=== PATIENT | male | born 1975 ===

== ENCOUNTER 2023-05-18 06:20 | Day surgery (SDC) | payer BC, SELFPAY ==
[2023-05-18] VITALS (12 sets, daily range): BP systolic 103–133; BP diastolic 56–78; BMI 27.4
[2023-05-18] MEDS: TYLENOL 1000 MG PO ×2 (08:57→17:14)
[2023-05-18] MEDS: NORMOSOL-R 1000 IV (08:57)
[2023-05-18] MEDS: TRANSDERM-SCOP 1 PATCH TRANSDERM (09:45)
--- NOTE | 2023-05-18 13:24 | W.IMMPOSTOP ---
Surgical Immed Post Op Note
-
Primary Surgeon: Mary Beth
Assisting Surgeon: Yariel PGY1
Pre-op Diagnosis: Ventral incisional hernia
Post-op Diagnosis: Incarcerated ventral incisional hernia
Procedure Performed: Robot assisted laparoscopic repair of ventral incisional hernia (IPOM+); lysis of adhesions (70 min)
Anesthesia Type: GETA + TAP block
Specimen / Cultures: None
Estimated Blood Loss: 5cc
Complications: None immediate
Operative Findings: Small bowel and omental adhesions to abdominal wall, additional 5mm optiview to right upper quadrant aided visualization for lap lysis to enable robotic trocar placement. Swish cheese midline defects encompassing an area of
roughly [id number], defects closed and 10cm x 15cm ventralight ST with echo placed, 8cm lateral to the midline at the old stoma site at the left lower quadrant an additional 3.5x1cm defect, 11cm round ventralight ST with echo placed. The midline mesh
was trimmed slightly to prevent mesh overlap on the left side. Total hernia size: [15cm]
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
[2023-05-18] MEDS: SUBLIMAZE 50 MCG IV ×2 (14:02→14:18)
--- NOTE | 2023-05-18 14:55 | PTCARENOTE ---
Pt arrived to [facility] from PACU s/p robotic laparoscopic ventral/incisional hernia repair. Pt on 2L NC satting 98 %, 5 lap incision sites POLYSOMNOGRAPHIC TECH, all C/D/I. Pt states 7/10 pain in his abdomen. Pt oriented to call garza and room, bed locked and in lowest
position, call garza within reach.
[2023-05-18] MEDS: ROXICODONE 10 MG PO ×2 (16:07→20:07)
[2023-05-18 20:29] LABS: Blood Urea Nitrogen 11 mg/dl (9-20); Calcium 8.2 mg/dl (8.4-10.2); Carbon Dioxide 22 mmol/L (22-30); Chloride 102 mmol/L (98-107); Estimated Creatinine Clearance > 125 ml/min; Glucose 146 mg/dl (70-99); Potassium 4.2 mmol/L (3.5-5.1); Sodium 135 mmol/L (135-145); eGFR > 60.00
[2023-05-18] MEDS: LOVENOX 40 MG SC (21:11)
[2023-05-18] MEDS: TORADOL 10 MG IV (23:48)
[2023-05-19 03:54] VITALS: BP 95/45
[2023-05-19 07:14] VITALS: BP 96/57
[2023-05-19] MEDS: ROXICODONE 5 MG PO ×2 (08:45→13:09)
[2023-05-19 11:09] VITALS: BP 127/65
[2023-05-19] MEDS: TYLENOL 1000 MG PO (12:09)
--- NOTE | 2023-05-19 12:51 | W.PN.GS2 ---
Today's Communication / Plan
-
DC home
Assessment / Plan
-
47M POD1 s/p rIPOM+ VIHR
Doing well post-op, meets criteria for DC
Subjective Data
-
Date of Service: May 19, 2023
AFVSS, ambulating, voiding, pain controlled, yecenia PO
Objective Data
-
Intake and Output
05/18/23 05/19/23 05/20/23
06:59 06:59 06:59
Intake Total 580 / 580
Balance 580 / 580
Intake:
Oral fluids 480 / 480
IV fluids (Total) 100 / 100
normosol 100 / 100
Other:
Number of approximated LARGE 1
amounts of urine
Vital Signs
Temp Pulse Resp BP Pulse Ox
97.9 F 66 15 127/65 100
05/19/23 11:09 05/19/23 11:09 05/19/23 11:09 05/19/23 11:09 05/19/23 11:09
Lab Results
05/18/23 20:10
Calcium 8.2 mg/dl (8.4-10.2) L 05/18/23 20:10
Physical Exam
-
Gen: NAD
Abd: approp ttp, incisions cdi
--- NOTE | 2023-05-19 12:52 | W.DS.TRANS ---
DC Summary - [employer]
-
Discharge Instructions:
Sleep Apnea Risk Low
Discharge Diagnosis/Procedures Ventral incisional hernia
Diet No restrictions
Activity No strenuous activity
Driving Restrictions No driving for 24 hours
Bathing Restrictions OK to Shower
Wound Care Allow skin glue to flake off on its own.
Instructions: Hernia Repair (DC)
Stand-Alone Forms:
Changes to Home Medications: No
Discharge Medications:
DC Medications w/original date entered in [facility]
acetaminophen 500 mg capsule 500 mg PO PRN PRN pain 05/14/23
ibuprofen 400 mg tablet 400 mg PO PRN PRN pain 05/14/23
ondansetron 4 mg disintegrating tablet 4 mg PO Q8H PRN nausea #20 tabs 05/18/23
oxycodone 5 mg tablet 5 - 10 mg PO Q4HPRN PRN moderate to severe pain #20 tabs 05/18/23
Home Medication Changes
Pending Results: No
--- NOTE | 2023-05-19 13:17 | CM ---
Chart reviewed. Spoke with pt at bedside
Lives in 2 story home with sister and her family
Independent, drives
Denies DME; denies past snf/HH
Has ride home at d/c
PCP - Dr Colbert
Pharm - [facility], [place]
Plan - Anticipate home - no needs
== END 2023-05-19 15:33 | disposition home or self-care (01) ==
LOC: SDS 06:20
PROVIDERS: Registered Nurse; ATTENDING PHYSICIAN Surgery
DX: K43.0 Incisional hernia with obstruction, without gangrene (principal); K66.0 Peritoneal adhesions (postprocedural) (postinfection); Z98.890 Other specified postprocedural states
CPT/HCPCS: 49592; 80048; C1713; C1781